=== PATIENT | male | born 1970 | race Caucasian/White ===

== ENCOUNTER 2020-05-12 12:52 | Emergency (ER) | payer OTHER ==
[~2020-05-12] VITALS: Ht 180.3 cm; Wt 70.3 kg
[2020-05-12 13:49] LABS: BASOPHILS % (AUTO) 0 % (0-1); EOSINOPHILS % (AUTO) 2 % (1-7); LYMPHOCYTES % (AUTO) 30 % (22-44); MEAN CORPUSCULAR HEMOGLOBIN 30.3 pg (27.5-34.5); MEAN CORPUSCULAR HGB CONC 35.7 g/dL (33.2-36.2); MEAN PLATELET VOLUME 8.4 fL (7.4-10.4); MONOCYTES % (AUTO) 6 % (2-9); NEUTROPHILS % (AUTO) 62 % (42-75); PLATELET COUNT 187 x10^3/uL (130-400); RED BLOOD COUNT 5.45 x10^6/uL (4.38-5.82); RED CELL DISTRIBUTION WIDTH 13.6 % (9.4-14.8)
--- NOTE | 2020-05-12 13:49 | NUR ---
THIS IS A 49 YO M W/ C/O CHEST PRESURE AND PALPITATIONS X1 WEEK. PT CURRENTLY WEARING HOLTER MONITOR FOR CARDIAC STUDY. PT DENIES SOB, DIZZINESS. PT CONVERSING W/O DIFFICULTY. RESP EVEN AND UNLABORED, NADN.
[2020-05-12 13:52] LABS: MD NO
[2020-05-12 14:00] LABS: ALBUMIN 4.3 g/dL (3.4-5.0); ANION GAP 5 mmol/L (5-15); CALCIUM 8.8 mg/dL (8.5-10.1); CHLORIDE 109 mmol/L (98-107); CREATININE 1.32 mg/dL (0.7-1.3)
[2020-05-12 14:04] LABS: TROPONIN I < 0.015 ng/mL (0.000-0.045)
--- NOTE | 2020-05-12 14:21 | NUR ---
ALL TESTS RESULTED. PT IS UP FOR RECHECK AT THIS TIME.
[2020-05-12 15:33] VITALS: BP 135/80
--- NOTE | 2020-05-12 15:44 | NUR ---
DR.VAN DELGADO AT BEDSIDE.
--- NOTE | 2020-05-12 15:56 | NUR ---
PT DOES NOT WISH TO STAY FOR REPEAT TROPONIN DUE TO CONCERNS OF COVID EXPOSURE WHILE BEING IN ED. [place].
--- NOTE | 2020-05-12 16:00 | NUR ---
PT VERBALIZED UNDERSTANDING OF DC INSTRUCTIONS. AMBULATORY W/ A STEADY GAIT TO DC DESK. RESP EVEN AND UNLABORED, [place].
== END 2020-05-12 16:02 | disposition home or self-care (01) ==
LOC: ED 15:28
DX: R00.2 Palpitations (principal); R07.89 Other chest pain; R94.31 Abnormal electrocardiogram [ECG] [EKG]
CPT/HCPCS: 36415; 71045; 80048; 82040; 83880; 84484; 85025; 85379; 93005; 99285